=== PATIENT | female | born 1940 | race Caucasian/White ===

== ENCOUNTER 2017-05-20 12:51 | Emergency (ER) | payer SELFPAY ==
[~2017-05-20] VITALS: Ht 167.6 cm; Wt 50.8 kg
[~2017-05-20 12:51] MED LIST: AC325T; ASP81CT PO; CARV3.12T PO; CEPH500C PO; CLD600T PO; CLPD75T PO; DCS100C PO; ENLP2.5T PO; ESTR0.5T PO; FRSM20T PO; FRSM40T PO; GEMF600T3 PO; GMFB600T; HYDR-34 PO; IBP800T PO; LISI2.5T56 PO; LISI5TAB14; LVF250T PO; METO25TA2 PO; MULT-608 PO; MULT1TAB63; NF-TYLARTH PO; SPRN25T PO; TIOT18CA IH; TRAM50TA2 PO; TRM50T PO; TRM50TRX; [UNRECOGNIZED DRUG - CODE]
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
--- OUTSIDE RECORDS SUMMARY | 2017-05-20 12:56 | XMS REPORT ---
Author JOSE Ayala [facility] eClinicalWorks Address Unknown Phone Unavailable Care Team Providers Care Safety And Skill Based Pay Manager Name Role Phone JOSE MASSEY CP Unavailable Allergies No Known Allergies Problems Problem Type Condition Code Onset Dates Condition Status Assessment Encounter for immunization Z23 Active Medications No Known Medications Procedures Procedure Coding System Code Date SINGLE IMMUNIZATION ADMIN CPT-4 45119 Feb 03, 2015 TDAP (BOOSTRIX) CPT-4 96574 Feb 03, 2015 Results No Known Results Immunizations Vaccine Administration Date TDAP (BOOSTRIX) Feb 03, 2015 Summary Purpose eClinicalWorks Submission
[2017-05-20] MEDS ORDERED: LACTATED RINGERS 1,000 ML IV ONE (13:46)
--- NOTE | 2017-05-20 13:52 | ED Cough/URI ---
General Chief Complaint: Cough/Cold/Flu Symptoms Stated Complaint: FEVER,N Nursing Triage Note: TO ED PER W/C FROM DR COBURN OFFICE. WITH FEVER COUGH CONGESTION BODY ACHES. Source: patient, RN/MD (Dr. Coburn) Exam Limitations: no limitations History of Present Illness Date Seen by Provider: May 20, 2017 Time Seen by Provider: 13:36 Initial Comments Patient presents to ER by private conveyance with chief complaint that Dr. Coburn sent her over here from the clinic because he felt that she had flulike symptoms and was volume depleted and she might need IV fluids. Patient describes the past couple days now she has had increasing malaise, body aches and all of her major joints, nasal congestion, sore throat, decreased fluid intake. She has no abdominal pain or nausea. No diarrhea or constipation. She does not have diabetes. She does not take any inhalers or have a history of COPD or asthma. She had a MAXIMUM TEMPERATURE of 101F today. She gives a history that one point she had severe congestive heart failure with an EF of 9% on his right was recommended to have a heart transplant but she did not pursue this and has since then had recovered ejection fraction. She's having no weight gain or edema. She does not have an LVAD or implantable pacemaker. Allergies and Home Medications Allergies Coded Allergies: ipratropium (Verified Allergy, Unknown, 10/23/05) Uncoded Allergies: BEE STINGS (Allergy, Unknown, 08/23/06) Home Medications Aspirin 81 Mg Chew, 81 MG PO DAILY@0900, #30 Prescribed by: CARISSA CANNON on 06/14/13 1328 Carvedilol 3.125 Mg Tablet, 3.125 MG PO BID, #30 Prescribed by: CARISSA CANNON on 06/14/13 1328 Cephalexin Monohydrate 500 Mg Capsule, 500 MG PO TID for 5 Days Prescribed by: CARISSA CANNON on 06/14/13 1737 Enalapril Maleate 2.5 Mg Tab, 2.5 MG PO DAILY, #30 Prescribed by: CARISSA CANNON on 06/14/13 1328 Furosemide 40 Mg Tab, 40 MG PO DAILY, #30 Prescribed by: CARISSA CANNON on 06/14/13 1328 Hydrocodone Bit/Acetaminophen 1 Ea Tablet, 1 EA PO Q4H PRN for PAIN, #30 Prescribed by: HUEY COBURN on 06/14/13 1708 Spironolactone 25 Mg Tab, 25 MG PO DAILY, #30 Prescribed by: CARISSA CANNON on 06/14/13 1328 Constitutional: chills, diaphoresis, fever, malaise, weakness EENTM: No ear discharge, No hearing loss, No ear pain Respiratory: cough, No phlegm, No short of breath, No wheezing Cardiovascular: No chest pain, No palpitations Gastrointestinal: No abdominal pain, No constipation, No diarrhea, No nausea, No vomiting Genitourinary: No discharge, No dysuria Musculoskeletal: No back pain, joint pain, No joint swelling, muscle pain Skin: No pruritus, No rash Psychiatric/Neurological: Denies Headache, Denies Numbness, Denies Paresthesia Past Hendsvu-Cjsqxz-Lgittz Hx Patient Social History Alcohol Use: Denies Use Recreational Drug Use: No Smoking Status: Never a Smoker Recent Foreign Travel: No Contact w/Someone Who Travel: No Recent Infectious Disease Expo: No Recent Hopitalizations: Yes Immunizations Up To Date Date of Pneumonia Vaccine: Apr 21, 2006 Surgeries History of Surgeries: Yes (R HIP FX REPAIR) Respiratory History of Respiratory Disorde: Yes Respiratory Disorders: Emphysema Cardiovascular History of Cardiac Disorders: Yes (Three Heart caths/no stent,CHF) Neurological History of Neurological Disord: No Reproductive System Hx Reproductive Disorders: Yes Sexually Transmitted Disease: No HIV/AIDS: No Gastrointestinal History of Gastrointestinal Di: No Musculoskeletal History of Musculoskeletal Dis: Yes (R HIP PAIN D/T FX) Musculoskeletal Disorders: Arthritis Endocrine History of Endocrine Disorders: No HEENT Loss of Vision: Denies Hearing Impairment: Denies Cancer History of Cancer: No Psychosocial History of Psychiatric Problem: No Integumentary History of Skin or Integumenta: No Blood Transfusions History of Blood Disorders: Yes (CLOTS) Adverse Reaction to a Blood Tr: No Family Medical History Family Medial History: Cancer of colon 03 FATHER, Onset:60 years & older 03 MOTHER, Onset:60 years & older Congestive heart failure 09 SISTER, Onset:50's - 60 No Family History of: Family history: Alzheimer's disease Family history: Diabetes mellitus Family history: Gastrointestinal disease History of - respiratory disease Stroke Physical Exam Vital Signs Vital Sign - Last 12Hours 05/20/17 13:09 Temp 99.4 Pulse 96 Resp 18 B/P (MAP) 124/86 (99) Pulse Ox 93 O2 Delivery Room Air Capillary Refill : Less Than 3 Seconds General Appearance: WD/WN, mild distress, thin Eyes: Bilateral Eye Normal Inspection, Bilateral Eye PERRL, Bilateral Eye EOMI HEENT: PERRL/EOMI, normal ENT inspection, pharyngeal erythema, No tonsillar exudate, other (bilateral TMs with clear mucoid effusion. Oral mucosa is dry) Neck: non-tender, supple, normal inspection Respiratory: chest non-tender, lungs clear, normal breath sounds, no respiratory distress, no accessory muscle use Cardiovascular: normal peripheral pulses, regular rate, rhythm, no edema, no JVD Gastrointestinal: normal bowel sounds, non tender, soft Extremities: normal inspection, no pedal edema, normal capillary refill Neurologic/Psychiatric: alert, normal mood/affect, oriented x 3 Skin: normal color, warm/dry Progress/Results/Core Measures Suspected Sepsis Recent Fever Within 48 Hours: No Infection Criteria Present: None New/Unexplained Altered Menta: No Sepsis Screen: No Definite Risk Sepsis Diagnosis: SIRS Temperature:99.4 Pulse: 96 Respiratory Rate: 18 Laboratory Tests 05/20/17 13:58: White Blood Count 8.9 Blood Pressure 124 /86 Mean: 99 Laboratory Tests 05/20/17 13:58: Creatinine 0.94, Platelet Count 202, Total Bilirubin 0.5 Results/Orders Lab Results Laboratory Tests Test 05/20/17 13:52 05/20/17 13:58 Range/Units Group A Streptococcus Screen NEGATIVE NEGATIVE White Blood Count 8.9 4.3-11.0 10^3/uL Red Blood Count 3.60 L 4.35-5.85 10^6/uL Hemoglobin 11.9 11.5-16.0 G/DL Hematocrit 34 L 35-52 % Mean Corpuscular Volume 95 80-99 FL Mean Corpuscular Hemoglobin 33 25-34 PG Mean Corpuscular Hemoglobin Concent 35 32-36 G/DL Red Cell Distribution Width 12.2 10.0-14.5 % Platelet Count 202 130-400 10^3/uL Mean Platelet Volume 10.6 H 7.4-10.4 FL Neutrophils (%) (Auto) 87 H 42-75 % Lymphocytes (%) (Auto) 5 L 12-44 % Monocytes (%) (Auto) 7 0-12 % Eosinophils (%) (Auto) 1 0-10 % Basophils (%) (Auto) 0 0-10 % Neutrophils # (Auto) 7.8 1.8-7.8 X 10^3 Lymphocytes # (Auto) 0.5 L 1.0-4.0 X 10^3 Monocytes # (Auto) 0.6 0.0-1.0 X 10^3 Eosinophils # (Auto) 0.1 0.0-0.3 10^3/uL Basophils # (Auto) 0.0 0.0-0.1 10^3/uL Neutrophils % (Manual) 88 % Lymphocytes % (Manual) 6 % Monocytes % (Manual) 5 % Eosinophils % (Manual) 0 % Basophils % (Manual) 0 % Band Neutrophils 1 % Blood Morphology Comment NORMAL Sodium Level 139 135-145 MMOL/L Potassium Level 3.4 L 3.6-5.0 MMOL/L Chloride Level 101 98-107 MMOL/L Carbon Dioxide Level 27 21-32 MMOL/L Anion Gap 11 5-14 MMOL/L Blood Urea Nitrogen 18 7-18 MG/DL Creatinine 0.94 0.60-1.30 MG/DL Estimat Glomerular Filtration Rate 58 BUN/Creatinine Ratio 19 Glucose Level 99 70-105 MG/DL Calcium Level 9.8 8.5-10.1 MG/DL Total Bilirubin 0.5 0.1-1.0 MG/DL Aspartate Amino Transf (AST/SGOT) 18 5-34 U/L Alanine Aminotransferase (ALT/SGPT) 15 0-55 U/L Alkaline Phosphatase 48 40-136 U/L C-Reactive Protein High Sensitivity 0.57 H 0.00-0.50 MG/DL Total Protein 7.5 6.4-8.2 GM/DL Albumin 4.5 3.2-4.5 GM/DL Micro Results Microbiology 05/20/17 Influenza Types A,B Antigen (MICHELLE) - Final, Complete My Orders Orders - KLAUDIA GOOD Cbc With Automated Diff (05/20/17 13:46) Comprehensive Metabolic Panel (05/20/17 13:46) Hs C Reactive Protein (05/20/17 13:46) Influenza A And B Antigens (05/20/17 13:46) Chest Pa/Lat (2 View) (05/20/17 13:46) Saline Lock/Iv-Start (05/20/17 13:46) Lactated Ringers (Lr 1000 Ml Iv Solution (05/20/17 13:46) Manual Differential (05/20/17 13:58) Rapid Strep A Screen (05/20/17 14:31) Medications Given in ED Current Medications Medications Dose Ordered Sig/Gabriela Route Start Time Stop Time Status Last Admin Dose Admin Lactated Ringer's 1,000 ml @ 0 mls/hr Q0M ONCE IV 05/20/17 13:46 05/20/17 13:48 DC 05/20/17 13:57 1,000 MLS/HR Vital Signs/I&O Vital Sign - Last 12Hours 05/20/17 13:09 Temp 99.4 Pulse 96 Resp 18 B/P (MAP) 124/86 (99) Pulse Ox 93 O2 Delivery Room Air Capillary Refill : Less Than 3 Seconds Blood Pressure Mean: 99 Progress Note #1: Time: 13:53 Progress Note Were going to re-swab her for influenza as well as strep throat given her red raw throat. Her symptoms are certainly consistent with influenza-like illness. While her lung sound clear at the chest x-ray and some lab work would be in order since he's tachycardia could be from volume depletion versus possible SIRs. Progress Note #2: Time: 16:00 Progress Note Patient states she's feeling better. We gave her the option for an observation stay in she says she has declined this and would prefer to just go home with some cough medicine and nausea medicine and drink more fluids. We have discussed decreasing her Lasix by half or full if she gets worse. We have also asked her to follow up this week for the weekend with her primary care physician. She is happy with this plan. Diagnostic Imaging Diagonstic Imaging: Xray Plain Films/CT/US/NM/MRI: chest (2v) Comments 11 ribs above the diaphragm. No acute cardiopulmonary processes noted. [facility] [place], [place] NAME: MERLE NICE [facility] REC#: [id number] PT STATUS: REG ER : 1940 PHYSICIAN: KLAUDIA GOOD MD ADMIT DATE: 05/20/17/ER Draft Date of Exam:05/20/17 CHEST PA/LAT (2 VIEW) INDICATION: Fever and nausea. Time of exam: 2:30 PM Correlation is made with prior study from 06/10/2013. The heart size is normal. There is some hyperinflation consistent with COPD. No infiltrates are detected. No effusion or pneumothorax is detected. IMPRESSION: No acute cardiopulmonary process is detected. Dictated on workstation # [id number] Dict: 05/20/17 1422 Trans: 05/20/17 1425 [facility] [id number] Interpreted by: HARSHA SEAMAN MD Electronically signed by: Reviewed: Reviewed by Me Departure Impression Impression: Primary Impression: Influenza-like symptoms Disposition: HOME, SELF-CARE Condition: Improved Departure-Patient Inst. Decision time for Depature: 16:02 Referrals: KAREN COBURN MD (PCP/Family) Primary Care Physician Patient Instructions: Viral Upper Respiratory Infection, Adult (DC) Add. Discharge Instructions: It is important that you continue to drink fluids use humidifiers, vapor rubs and Tylenol [id number] for aches or temperatures. Please Your Lasix dose in half until you start to feel better. If you begin to have swelling around her ankles you can increase her dose again. If you're still getting dehydrated or have a dry mouth then you should go ahead and stop your Lasix for a day and then reassess the next day. Follow up with your primary care provider before the weekend. If you shortness of breath gets worse or you're cough becomes productive of copious sputum or you begin to have fevers about 102.5 especially if they are not responding to the Tylenol you should return to the ER/PCP for evaluation. If you have cough you may use the cough medicine every 6 hours. If you're having nausea you can take one tablet of the nausea medicine place under your tongue and allow it to absorb every 6 hours as needed. All discharge instructions reviewed with patient and/or family. Voiced understanding. Scripts Ondansetron (Zofran Odt) 8 Mg Tab.rapdis 8 MG PO Q6H Y for NAUSEA/VOMITING-1ST LINE, #10 TAB 0 Refills Prov: KLAUDIA GOOD 05/20/17 Promethazine HCl/Codeine (Prometh-Codein 6.25-10 mg/5 ml) 5 Ml Syrup 5 ML PO Q6H Y for COUGH, #120 ML 0 Refills Prov: KLAUDIA GOOD 05/20/17 Copy Copies To 1: KAREN COBURN MD, TITUS J May 20, 2017 13:52
[2017-05-20 14:09] LABS: BASOPHILS % (AUTO) 0 % (0-10); EOSINOPHILS # (AUTO) 0.1 10^3/uL (0.0-0.3); EOSINOPHILS % (AUTO) 1 % (0-10); HEMATOCRIT 34 % (35-52); HEMOGLOBIN 11.9 G/DL (11.5-16.0); LYMPHOCYTES # (AUTO) 0.5 X 10^3 (1.0-4.0); LYMPHOCYTES % (AUTO) 5 % (12-44); MEAN CORPUSCULAR HEMOGLOBIN 33 PG (25-34); MEAN CORPUSCULAR HGB CONC 35 G/DL (32-36); MEAN CORPUSCULAR VOLUME 95 FL (80-99); MEAN PLATELET VOLUME 10.6 FL (7.4-10.4); MONOCYTES # (AUTO) 0.6 X 10^3 (0.0-1.0); MONOCYTES % (AUTO) 7 % (0-12); NEUTROPHILS # (AUTO) 7.8 X 10^3 (1.8-7.8); NEUTROPHILS % (AUTO) 87 % (42-75); PLATELET COUNT 202 10^3/uL (130-400); RED CELL DISTRIBUTION WIDTH 12.2 % (10.0-14.5); WHITE BLOOD COUNT 8.9 10^3/uL (4.3-11.0)
[2017-05-20 14:24] LABS: BAND NEUTROPHILS 1 %; BASOPHILS % (MANUAL) 0 %; EOSINOPHILS % (MANUAL) 0 %; LYMPHOCYTES % (MANUAL) 6 %; MONOCYTES % (MANUAL) 5 %; NEUTROPHILS % (MANUAL) 88 %; RBC MORPH NORMAL
--- NOTE | 2017-05-20 14:25 | Diagnostic Imaging Report ---
INDICATION: Fever and nausea. Time of exam: 2:30 PM Correlation is made with prior study from 06/10/2013. The heart size is normal. There is some hyperinflation consistent with COPD. No infiltrates are detected. No effusion or pneumothorax is detected. IMPRESSION: No acute cardiopulmonary process is detected. Dictated by: Dictated on workstation # [id number]
[2017-05-20 14:32] LABS: ALBUMIN 4.5 GM/DL (3.2-4.5); BILIRUBIN,TOTAL 0.5 MG/DL (0.1-1.0); CALCIUM 9.8 MG/DL (8.5-10.1); CREATININE SERUM 0.94 MG/DL (0.60-1.30); POTASSIUM 3.4 MMOL/L (3.6-5.0); TOTAL PROTEIN 7.5 GM/DL (6.4-8.2)
[2017-05-20] MEDS ORDERED: PROM5SYR PO (16:07)
[2017-05-20] MEDS ORDERED: ONDA8TAB9 PO (16:07)
[2017-05-20 16:11] VITALS: BP 116/50
== END 2017-05-20 16:11 | disposition home or self-care (01) ==
LOC: EDUNIT# 12:51 → ER 12:53
DX: J11.1 Influenza due to unidentified influenza virus with other respiratory manifestations (principal); J43.9 Emphysema, unspecified; Z82.49 Family history of ischemic heart disease and other diseases of the circulatory system; Z80.0 Family history of malignant neoplasm of digestive organs; Z79.82 Long term (current) use of aspirin; Z88.8 Allergy status to other drugs, medicaments and biological substances
CPT/HCPCS: 36415; 71046; 80053; 85007; 85027; 86141; 87430; 87804; 96360

== ENCOUNTER 2017-06-02 11:52 | Observation (INO) | payer MEDICARE, OTHER ==
[~2017-06-02] VITALS: Ht 167.6 cm; Wt 51.7 kg
[~2017-06-02 11:52] MED LIST changes: +ONDA8TAB9 PO; +PROM5SYR PO
[2017-06-02] MEDS ORDERED: NS IV 1000 ML 1,000 ML IV SCH (14:00)
[2017-06-02] MEDS ORDERED: ONDANSETRON 4 MG/2 ML (SDV) Z0FRAN IVP ONE ×2 (14:00→14:45)
--- NOTE | 2017-06-02 14:24 | ED GI ---
General Chief Complaint: Abdominal/GI Problems Stated Complaint: N/V/D/WEAKNESS Nursing Triage Note: Pt c/o abd pain and n/v/d since 2200 last night. Sepsis Screen: No Definite Risk Source of Information: Patient, Other Exam Limitations: No Limitations History of Present Illness Date Seen by Provider: Jun 02, 2017 Time Seen by Provider: 14:00 Initial Comments Patient present to ER by private conveyance with a chief complaint that she is having some nausea vomiting for the past day or 2 as well as diarrhea. There is no blood in the emesis or diarrhea. She was seen about 2 weeks ago was swabbed and was negative for flu was having a cough and was put on some steroids and sent home. She said she started feeling a little better but then went to see Dr. Coburn, PCP several days ago and he extended her steroids and put her on azithromycin which she completed about a day or 2 ago. She says she was feeling pretty good until yesterday when she started having nausea vomiting. She decided to come into her primary care doctor's office but he told her to go to the ER instead because she would likely need admitted. She says her mouth is very dry she's not been ill keep anything down except for a few ice chips. She took all of her medicines except for this morning because the nausea vomiting prevented this. She is on spironolactone and Lasix for congestive heart failure. She's not having any fevers or chills right now but she definitely had malaise and body aches. Patient states 2 weeks ago she weighed 118 pounds and today she weighs 108 pounds which she attributes to her inability to keep fluids down. Allergies and Home Medications Allergies Coded Allergies: Sulfa (Sulfonamide Antibiotics) (Unverified Allergy, Unknown, 06/02/17) ipratropium (Verified Allergy, Unknown, 10/23/05) Uncoded Allergies: BEE STINGS (Allergy, Unknown, 08/23/06) Home Medications Aspirin 81 Mg Chew, 81 MG PO DAILY@0900, #30 Prescribed by: CARISSA CANNON on 06/14/13 1328 Carvedilol 3.125 Mg Tablet, 3.125 MG PO BID, #30 Prescribed by: CARISSA CANNON on 06/14/13 1328 Cephalexin Monohydrate 500 Mg Capsule, 500 MG PO TID for 5 Days Prescribed by: CARISSA CANNON on 06/14/13 1737 Enalapril Maleate 2.5 Mg Tab, 2.5 MG PO DAILY, #30 Prescribed by: CARISSA CANNON on 06/14/13 1328 Furosemide 40 Mg Tab, 40 MG PO DAILY, #30 Prescribed by: CARISSA CANNON on 06/14/13 1328 Hydrocodone Bit/Acetaminophen 1 Ea Tablet, 1 EA PO Q4H PRN for PAIN, #30 Prescribed by: HUEY COBURN on 06/14/13 1708 Ondansetron 8 Mg Tab.rapdis, 8 MG PO Q6H PRN for NAUSEA/VOMITING-1ST LINE, #10 Ref 0 Prescribed by: KLAUDIA GOOD on 05/20/17 1607 Promethazine HCl/Codeine 5 Ml Syrup, 5 ML PO Q6H PRN for COUGH, #120 Ref 0 Prescribed by: KLAUDIA GOOD on 05/20/17 1607 Spironolactone 25 Mg Tab, 25 MG PO DAILY, #30 Prescribed by: CARISSA CANNON on 06/14/13 1328 Review of Systems Constitutional: No chills, No diaphoresis, No fever, malaise (body aches) EENTM: No Double Vision, No Eye Pain Respiratory: Cough (productive), Denies Orthopnea, Shortness of Air (mild), Denies Wheezing Cardiovascular: Denies Chest Pain, Denies Lightheadedness, Denies Palpitations , Denies Syncope Gastrointestinal: Denies Constipated, Diarrhea (nonbloody), Nausea, Vomiting Genitourinary: Denies Burning, Denies Discharge Skin: No pruritus, No rash Past Tsvpsbf-Vjzbqj-Mvhduc Hx Patient Social History Alcohol Use: Denies Use Recreational Drug Use: No Smoking Status: Never a Smoker Recent Foreign Travel: No Contact w/Someone Who Travel: No Recent Infectious Disease Expo: No Recent Hopitalizations: Yes Immunizations Up To Date Date of Pneumonia Vaccine: Apr 21, 2006 Surgeries History of Surgeries: Yes (R HIP FX REPAIR) Respiratory History of Respiratory Disorde: Yes Respiratory Disorders: Emphysema Cardiovascular History of Cardiac Disorders: Yes (Three Heart caths/no stent,CHF) Neurological History of Neurological Disord: No Reproductive System Hx Reproductive Disorders: Yes Sexually Transmitted Disease: No HIV/AIDS: No Gastrointestinal History of Gastrointestinal Di: No Musculoskeletal History of Musculoskeletal Dis: Yes (R HIP PAIN D/T FX) Musculoskeletal Disorders: Arthritis Endocrine History of Endocrine Disorders: No HEENT Loss of Vision: Denies Hearing Impairment: Denies Cancer History of Cancer: No Psychosocial History of Psychiatric Problem: No Integumentary History of Skin or Integumenta: No Blood Transfusions History of Blood Disorders: Yes (CLOTS) Adverse Reaction to a Blood Tr: No Family Medical History Family Medial History: Cancer of colon 03 FATHER, Onset:60 years & older 03 MOTHER, Onset:60 years & older Congestive heart failure 09 SISTER, Onset:50's - 60 No Family History of: Family history: Alzheimer's disease Family history: Diabetes mellitus Family history: Gastrointestinal disease History of - respiratory disease Stroke Physical Exam Vital Signs VS - Last 72 Hours, by Label 06/02/17 13:11 Temp 98.9 Pulse 114 Resp 18 B/P (MAP) 120/62 (81) Pulse Ox 96 O2 Delivery Room Air Capillary Refill : Less Than 3 Seconds General Appearance: mild distress, thin HEENT: PERRL/EOMI, TMs normal, pharynx normal (oral mucosa is very dry) Neck: non-tender, full range of motion, supple, normal inspection Respiratory: chest non-tender, lungs clear, normal breath sounds, no respiratory distress, no accessory muscle use Cardiovascular: normal peripheral pulses, regular rate, rhythm, no edema, no JVD Peripheral Pulses: 2+ Dorsalis Pedis (R), 2+ Left Dors-Pedis (L) Gastrointestinal: normal bowel sounds, non tender, soft Extremities: normal inspection, no pedal edema, no calf tenderness, normal capillary refill Neurologic/Psychiatric: alert, normal mood/affect, oriented x 3 Skin: normal color, warm/dry Progress/Results/Core Measures Results/Orders Lab Results Laboratory Tests Test 06/02/17 14:01 Range/Units White Blood Count 14.5 H 4.3-11.0 10^3/uL Red Blood Count 3.83 L 4.35-5.85 10^6/uL Hemoglobin 12.4 11.5-16.0 G/DL Hematocrit 36 35-52 % Mean Corpuscular Volume 94 80-99 FL Mean Corpuscular Hemoglobin 32 25-34 PG Mean Corpuscular Hemoglobin Concent 35 32-36 G/DL Red Cell Distribution Width 12.4 10.0-14.5 % Platelet Count 338 130-400 10^3/uL Mean Platelet Volume 10.3 7.4-10.4 FL Neutrophils (%) (Auto) 92 H 42-75 % Lymphocytes (%) (Auto) 2 L 12-44 % Monocytes (%) (Auto) 5 0-12 % Eosinophils (%) (Auto) 0 0-10 % Basophils (%) (Auto) 0 0-10 % Neutrophils # (Auto) 13.3 H 1.8-7.8 X 10^3 Lymphocytes # (Auto) 0.4 L 1.0-4.0 X 10^3 Monocytes # (Auto) 0.8 0.0-1.0 X 10^3 Eosinophils # (Auto) 0.0 0.0-0.3 10^3/uL Basophils # (Auto) 0.0 0.0-0.1 10^3/uL Neutrophils % (Manual) 93 % Lymphocytes % (Manual) 4 % Monocytes % (Manual) 3 % Blood Morphology Comment NORMAL Sodium Level 139 135-145 MMOL/L Potassium Level 3.8 3.6-5.0 MMOL/L Chloride Level 104 98-107 MMOL/L Carbon Dioxide Level 20 L 21-32 MMOL/L Anion Gap 15 H 5-14 MMOL/L Blood Urea Nitrogen 25 H 7-18 MG/DL Creatinine 0.99 0.60-1.30 MG/DL Estimat Glomerular Filtration Rate 54 BUN/Creatinine Ratio 25 Glucose Level 183 H 70-105 MG/DL Calcium Level 10.2 H 8.5-10.1 MG/DL Total Bilirubin 0.7 0.1-1.0 MG/DL Aspartate Amino Transf (AST/SGOT) 24 5-34 U/L Alanine Aminotransferase (ALT/SGPT) 19 0-55 U/L Alkaline Phosphatase 51 40-136 U/L C-Reactive Protein High Sensitivity 2.65 H 0.00-0.50 MG/DL B-Type Natriuretic Peptide 47.6 <100.0 PG/ML Total Protein 8.0 6.4-8.2 GM/DL Albumin 4.6 H 3.2-4.5 GM/DL Micro Results Microbiology 06/02/17 Influenza Types A,B Antigen (MICHELLE) - Final, Complete My Orders Orders - KLAUDIA GOOD Ondansetron Injection (Zofran Injectio (06/02/17 14:00) Ns Iv 1000 Ml (Sodium Chloride 0.9%) (06/02/17 14:00) Cbc With Automated Diff (06/02/17 13:56) Comprehensive Metabolic Panel (06/02/17 13:56) BNP (06/02/17 14:17) Hs C Reactive Protein (06/02/17 14:17) Influenza A And B Antigens (06/02/17 14:17) Chest 1 View, Ap/Pa Only (06/02/17 14:17) Ua Culture If Indicated (06/02/17 14:25) Manual Differential (06/02/17 14:01) Ondansetron Injection (Zofran Injectio (06/02/17 14:45) 1/2 Ns W/Kcl 20 Meq/L (0.45% Sodium Chlo (06/02/17 15:15) Medications Given in ED Current Medications Medications Dose Ordered Sig/Gabriela Route Start Time Stop Time Status Last Admin Dose Admin Ondansetron HCl 4 mg ONCE ONCE IVP 06/02/17 14:00 06/02/17 14:01 DC 06/02/17 14:10 4 MG Ondansetron HCl 4 mg ONCE ONCE IVP 06/02/17 14:45 06/02/17 14:46 DC 06/02/17 15:12 4 MG Vital Signs/I&O Vital Sign - Last 12Hours 06/02/17 13:11 Temp 98.9 Pulse 114 Resp 18 B/P (MAP) 120/62 (81) Pulse Ox 96 O2 Delivery Room Air Blood Pressure Mean: 81 Progress Note : Time: 14:24 Progress Note Possible viral versus influenza gastroenteritis and colitis. This is constipation be very dehydrated on appearance. We'll check her electrolytes and kidney function as well as start some fluids and 1 L and nausea medicines. She is probably going to need a short stay in the hospital to get rehydrated and address any of her other needs. Diagnostic Imaging Diagonstic Imaging: Xray Plain Films/CT/US/NM/MRI: chest (1v) Comments No acute cardio pulmonary processes noted. [facility] [place], [place] NAME: NICEMERLE REC#: [id number] PT STATUS: REG ER : 1940 PHYSICIAN: KLAUDIA GOOD MD ADMIT DATE: 06/02/17/ER Draft Date of Exam:06/02/17 CHEST 1 VIEW, AP/PA ONLY INDICATION: Nausea, vomiting, and diarrhea. Frontal chest obtained at 2:48 p.m. FINDINGS: Heart is normal in size. There is mild central vascular prominence. There are chronic appearing increased interstitial markings. There is no pneumothorax or pleural fluid or consolidation. IMPRESSION: Mild central vascular prominence with chronic appearing increased interstitial markings. No focal consolidation or pleural fluid. Dictated on workstation # [id number] Dict: 06/02/17 1453 Trans: 06/02/17 1512 [id number] Interpreted by: KEISHA MONTEZ MD Electronically signed by: Reviewed: Reviewed by Me Departure Communication (Admissions) Time/Spoke to Admitting Phy: 15:[address] Luke, discussed case lab imaging and findings and he agrees to bring the patient and treat her dehydration with some fluids and Zofran. Impression Impression: Primary Impression: Dehydration Additional Impression: Gastroenteritis and colitis, viral Disposition: 09 ADMITTED INPATIENT Condition: Improved Admissions Decision to Admit Reason: Admit from ER (General) Decision to Admit/Date: Jun 02, 2017 Time/Decision to Admit Time: 15:47 Departure-Patient Inst. Referrals: KAREN COBURN MD (PCP/Family) Primary Care Physician Copy Copies To 1: KAREN COBURN MD, TITUS J Jun 02, 2017 14:24
[2017-06-02 14:39] LABS: BASOPHILS % (AUTO) 0 % (0-10); EOSINOPHILS % (AUTO) 0 % (0-10); HEMATOCRIT 36 % (35-52); HEMOGLOBIN 12.4 G/DL (11.5-16.0); LYMPHOCYTES # (AUTO) 0.4 X 10^3 (1.0-4.0); LYMPHOCYTES % (AUTO) 2 % (12-44); MEAN CORPUSCULAR HEMOGLOBIN 32 PG (25-34); MEAN CORPUSCULAR HGB CONC 35 G/DL (32-36); MEAN CORPUSCULAR VOLUME 94 FL (80-99); MEAN PLATELET VOLUME 10.3 FL (7.4-10.4); MONOCYTES # (AUTO) 0.8 X 10^3 (0.0-1.0); MONOCYTES % (AUTO) 5 % (0-12); NEUTROPHILS # (AUTO) 13.3 X 10^3 (1.8-7.8); NEUTROPHILS % (AUTO) 92 % (42-75); PLATELET COUNT 338 10^3/uL (130-400); RED BLOOD COUNT 3.83 10^6/uL (4.35-5.85); RED CELL DISTRIBUTION WIDTH 12.4 % (10.0-14.5); WHITE BLOOD COUNT 14.5 10^3/uL (4.3-11.0)
[2017-06-02 14:50] LABS: ALBUMIN 4.6 GM/DL (3.2-4.5); BILIRUBIN,TOTAL 0.7 MG/DL (0.1-1.0); CALCIUM 10.2 MG/DL (8.5-10.1); CREATININE SERUM 0.99 MG/DL (0.60-1.30); POTASSIUM 3.8 MMOL/L (3.6-5.0)
[2017-06-02 14:59] LABS: LYMPHOCYTES % (MANUAL) 4 %; MONOCYTES % (MANUAL) 3 %; NEUTROPHILS % (MANUAL) 93 %; RBC MORPH NORMAL
--- NOTE | 2017-06-02 15:12 | Diagnostic Imaging Report ---
INDICATION: Nausea, vomiting, and diarrhea. Frontal chest obtained at 2:48 p.m. FINDINGS: Heart is normal in size. There is mild central vascular prominence. There are chronic appearing increased interstitial markings. There is no pneumothorax or pleural fluid or consolidation. IMPRESSION: Mild central vascular prominence with chronic appearing increased interstitial markings. No focal consolidation or pleural fluid. Dictated by: Dictated on workstation # [id number]
[2017-06-02] MEDS ORDERED: 1/2 NS W/KCL 20 MEQ/L 1,000 ML IV SCH (15:15)
[2017-06-02] MEDS ORDERED: ACETAMINOPHEN 500 MG TAB (TYLENOL) PO ONE (16:45)
[2017-06-02 17:00] VITALS: BP 123/60
[2017-06-02] MEDS ORDERED: ONDANSETRON 4 MG/2 ML (SDV) Z0FRAN IV PRN (17:45)
[2017-06-02] MEDS ORDERED: CATHETER FLUSH 10 ML SYR IV PRN (17:45)
[2017-06-02] MEDS: 1/2 NS W/KCL 20 MEQ/L 1,000 ML IV SCH (18:20)
[2017-06-02] MEDS ORDERED: CARV3.122 PO (18:24)
[2017-06-02] MEDS ORDERED: ENAL2.5T PO (18:24)
[2017-06-02] MEDS ORDERED: FURO40TA4 PO (18:24)
[2017-06-02] MEDS ORDERED: SPIR25TA3 PO (18:24)
[2017-06-02] MEDS ORDERED: MAGN250T2 PO (18:47)
[2017-06-02] MEDS ORDERED: ASPI-983 PO (18:47)
[2017-06-02] MEDS ORDERED: ONDA8TAB13 PO (18:47)
[2017-06-02] MEDS ORDERED: CODE118S2 PO (18:47)
[2017-06-02] MEDS ORDERED: ACET-2422 PO (18:47)
[2017-06-02] MEDS ORDERED: MULT1TAB69 PO (18:47)
[2017-06-02] MEDS ORDERED: CALC1TAB PO (18:47)
[2017-06-02] MEDS ORDERED: INFLUENZA TRIvalent 2017-2018 0.5 ML/45 MCG SYR IM ONE (19:45)
[2017-06-02 20:49] VITALS: BP 103/57
[2017-06-02 23:14] VITALS: BP 115/55
[2017-06-03] MEDS: 1/2 NS W/KCL 20 MEQ/L 1,000 ML IV SCH ×3 (01:27→22:56)
[2017-06-03 04:00] VITALS: BP 131/63
[2017-06-03 06:31] LABS: BASOPHILS % (AUTO) 0 % (0-10); EOSINOPHILS # (AUTO) 0.1 10^3/uL (0.0-0.3); EOSINOPHILS % (AUTO) 2 % (0-10); HEMATOCRIT 30 % (35-52); LYMPHOCYTES # (AUTO) 1.6 X 10^3 (1.0-4.0); LYMPHOCYTES % (AUTO) 22 % (12-44); MEAN CORPUSCULAR HEMOGLOBIN 32 PG (25-34); MEAN CORPUSCULAR HGB CONC 34 G/DL (32-36); MEAN CORPUSCULAR VOLUME 96 FL (80-99); MEAN PLATELET VOLUME 10.2 FL (7.4-10.4); MONOCYTES # (AUTO) 0.8 X 10^3 (0.0-1.0); MONOCYTES % (AUTO) 11 % (0-12); NEUTROPHILS # (AUTO) 4.7 X 10^3 (1.8-7.8); NEUTROPHILS % (AUTO) 65 % (42-75); PLATELET COUNT 253 10^3/uL (130-400); RED BLOOD COUNT 3.09 10^6/uL (4.35-5.85); RED CELL DISTRIBUTION WIDTH 12.7 % (10.0-14.5); WHITE BLOOD COUNT 7.2 10^3/uL (4.3-11.0)
[2017-06-03 06:54] LABS: BUN/CREATININE RATIO 20; CALCIUM 8.7 MG/DL (8.5-10.1); CARBON DIOXIDE 22 MMOL/L (21-32); CHLORIDE 109 MMOL/L (98-107); CREATININE SERUM 0.79 MG/DL (0.60-1.30); GFR ESTIMATED > 60; GLUCOSE 103 MG/DL (70-105); POTASSIUM 4.1 MMOL/L (3.6-5.0); SODIUM 140 MMOL/L (135-145)
[2017-06-03 08:00] VITALS: BP 112/55
[2017-06-03] MEDS: ACETAMINOPHEN 500 MG TAB (TYLENOL) PO PRN ×2 (11:27→21:25)
[2017-06-03 12:00] VITALS: BP 122/58
--- NOTE | 2017-06-03 12:24 | History & Physical-Hospitalist ---
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 She reports that on the evening of 06/01 after going to bed she began to have growling in her abdomen and ultimately vomiting and diarrhea. This was to an extent great enough that she ultimately had to prevail upon her to help her to the bathroom. This continued through the day yesterday and ultimately by afternoon she had had enough and was brought to the emergency room. She also reports that she had a flulike illness about 2 weeks ago. She also has a history of diverticulitis and also of congestive heart failure. By weight in the emergency room it would look as if she were down about 10 pounds. She was admitted for rehydration Date Seen 06/03/17 Time Seen by Provider: 12:21 Attending Physician Dipesh Ramírez MD PCP Chilo Coburn MD Referring Physician Date of Admission Jun 02, 2017 at 16:12 Home Medications & Allergies Home Medications Reviewed patient Home Medication Reconciliation Form Allergies Allergies Coded Allergies Sulfa (Sulfonamide Antibiotics) (Unverified Allergy, Unknown, 06/02/17) ipratropium (Verified Allergy, Unknown, 10/23/05) Uncoded Allergies BEE STINGS ( Allergy, Unknown, 08/23/06) Past Ftqldpq-Aknvmw-Vximhy Hx Patient Social History Alcohol Use: Denies Use Recreational Drug Use: No Smoking Status: Never a Smoker Physical Abuse Screen: No Sexual Abuse: No Recent Foreign Travel: No Contact w/other who traveled: No Recent Hopitalizations: No Recent Infectious Disease Expo: No Immunizations Up To Date Date of Pneumonia Vaccine: Apr 21, 2006 Seasonal Allergies Seasonal Allergies: No Surgeries Yes (R HIP FX REPAIR) Respiratory Yes Cardiovascular Yes (Three Heart caths/no stent,CHF) Neurological No Reproductive System Hx Reproductive Disorders: Yes Sexually Transmitted Disease: No HIV/AIDS: No Genitourinary No Gastrointestinal No Musculoskeletal Yes (R HIP PAIN D/T FX) Arthritis Endocrine History of Endocrine Disorders: No HEENT History of HEENT Disorders: No Loss of Vision: Denies Hearing Impairment: Denies Cancer No Psychosocial History of Psychiatric Problem: No Integumentary History of Skin or Integumenta: No Blood Transfusions History of Blood Disorders: Yes (CLOTS) Adverse Reaction to a Blood Tr: No Family Medical History Family Hx: Cancer of colon 03 FATHER, Onset:60 years & older 03 MOTHER, Onset:60 years & older Congestive heart failure 09 SISTER, Onset:50's - 60 No Family History of: Family history: Alzheimer's disease Family history: Diabetes mellitus Family history: Gastrointestinal disease History of - respiratory disease Stroke Review of Systems Constitutional: see HPI, dizziness, malaise, weakness, weight loss EENTM: no symptoms reported Respiratory: no symptoms reported, other (occasional cough left over from flulike illness 2 weeks ago) Cardiovascular: other (past history of congestive heart failure) Gastrointestinal: diarrhea, nausea, vomiting, other (crampy abdominal pain and gurgling) Genitourinary: decreased output Musculoskeletal: see HPI, muscle weakness Skin: no symptoms reported Psychiatric/Neurological: No Symptoms Reported Physical Exam Physical Exam Vital Signs Vital Signs - First Documented 06/02/17 13:11 Temp 98.9 Pulse 114 Resp 18 B/P (MAP) 120/62 (81) Pulse Ox 96 O2 Delivery Room Air Capillary Refill : Less Than 3 Seconds General Appearance: Mild Distress Eyes: Bilateral Eye Normal Inspection HEENT: Normal ENT Inspection Neck: Full Range of Motion, Normal Inspection, Non Tender, Supple, Carotid Bruit Respiratory: Chest Non Tender, Lungs Clear, Normal Breath Sounds, No Accessory Muscle Use, No Respiratory Distress Cardiovascular: Regular Rate, Rhythm, No Edema, No Gallop, No JVD, No Murmur, Normal Peripheral Pulses Gastrointestinal: Other (somewhat hyperactive bowel sounds) Back: Normal Inspection Extremity: Normal Capillary Refill, Normal Inspection, Normal Range of Motion, Non Tender, No Calf Tenderness, No Pedal Edema Neurologic/Psychiatric: Alert, Oriented x3, No Motor/Sensory Deficits, Normal Mood/Affect Skin: Normal Color, Warm/Dry Lymphatic: No Adenopathy Results Results/Procedures Lab Laboratory Tests 06/02/17 14:01 06/03/17 05:30 Assessment/Plan Admission Diagnosis 1.gastroenteritis of 2 days' duration. 2.dehydration. 3.history of congestive heart failure. Assessment and Plan Rehydration Clinical Quality Measures DVT/VTE Risk/Contraindication: Risk Factor Score Per Nursin RFS Level Per Nursing on Admit: 3=High DIPESH RAMÍREZ MD Jun 03, 2017 12:24
[2017-06-03 15:50] VITALS: BP 131/62
[2017-06-03 20:00] VITALS: BP 124/57
[2017-06-04] VITALS: BP 101/51
[2017-06-04 08:00] VITALS: BP 132/61
[2017-06-04] MEDS: 1/2 NS W/KCL 20 MEQ/L 1,000 ML IV SCH (08:30)
[2017-06-04] MEDS ORDERED: ONDANSETRON 8 MG (ZOFRAN) ORAL DISSOLVE TAB PO PRN (11:15)
[2017-06-04] MEDS ORDERED: PROMETHAZINE/ CODEINE SYRUP 5 ML UDC PO PRN (11:15)
--- NOTE | 2017-06-04 11:19 | Discharge Summary-Hospitalist ---
Diagnosis/Chief Complaint Date of Admission Jun 02, 2017 at 16:12 Date of Discharge Discharge Date: Jun 04, 2017 Admission Diagnosis 1.gastroenteritis of 2 days' duration. 2.dehydration. 3.history of congestive heart failure. Discharge Diagnosis 1.gastroenteritis of 2 days' duration. 2.dehydration. 3.history of congestive heart failure. Discharge Summary Discharge Physical Examination Allergies: Coded Allergies: Sulfa (Sulfonamide Antibiotics) (Unverified Allergy, Unknown, 06/02/17) ipratropium (Verified Allergy, Unknown, 10/23/05) Uncoded Allergies: BEE STINGS (Allergy, Unknown, 08/23/06) Vitals & I&Os Vital Signs Date Time Temp Pulse Resp B/P (MAP) Pulse Ox O2 Delivery O2 Flow Rate FiO2 06/04/17 08:00 97.0 73 14 132/61 (84) 97 Room Air 06/02/17 23:14 Hospital Course Note from 06/04/17 Patient doing much better and is able to eat and drink well Labs reviewed all normal Reconcile all home meds but holding Lasix Wants to go home Patient afebrile vital signs stable, pleasant, oriented 3, frail, thin Regular rate and rhythm, clear to auscultation bilaterally No edema Labs (last 24 hrs) Microbiology 06/02/17 Influenza Types A,B Antigen (MICHELLE) - Final, Complete Discharge Home Medications: Active Scripts Active Reported Ondansetron Odt (Ondansetron) 8 Mg Tab.rapdis 8 Mg PO Q6H PRN Promethazine-Codeine Syrup (Promethazine HCl/Codeine) 118 Ml Syrup 5 Ml PO Q6H PRN Magnesium 250 Mg Tablet 500 Mg PO DAILY TAKES 2 (250 MG) TABLETS Caltrate 600 + D Tablet (Calcium Carbonate/Vitamin D3) 1 Each Tablet 1 Tab PO DAILY Multivitamins (Multivitamin) 1 Each Tablet 1 Tab PO DAILY Acetaminophen ER (Acetaminophen) 650 Mg Tablet.er 1,300 Mg PO BID PRN TAKES 2 (650 MG) TABLETS Aspirin EC (Aspirin) 81 Mg Tablet.dr 81 Mg PO DAILY Enalapril Maleate 2.5 Mg Tablet 2.5 Mg PO BID Spironolactone 25 Mg Tablet 25 Mg PO DAILY Furosemide 40 Mg Tablet 20 Mg PO DAILY TAKES 1/2 OF A (40 MG) TABLET Carvedilol 3.125 Mg Tablet 3.125 Mg PO BID Instructions to patient/family Please see electronic discharge instructions given to patient. Clinical Quality Measures DVT/VTE Risk/Contraindication: Risk Factor Score Per Nursin RFS Level Per Nursing on Admit: 3=High CANDE HUSAIN DO Jun 04, 2017 11:19
[2017-06-04] MEDS ORDERED: ENALAPRIL 2.5 MG (VASOTEC) TAB PO SCH (21:00)
[2017-06-04] MEDS ORDERED: CARVEDILOL 3.125 MG (COREG) TABLET PO SCH (21:00)
[2017-06-05] MEDS ORDERED: SPIRONOLACTONE 25 MG (ALDACTONE) TAB PO SCH (09:00)
[2017-06-05] MEDS ORDERED: ASPIRIN E.C. 81 MG (ECOTRIN) TAB PO SCH (09:00)
[2017-06-05] MEDS ORDERED: MULTIVIT W/MINERALS TAB (THERAGRAN M) PO SCH (09:00)
--- OUTSIDE RECORDS SUMMARY | 2017-06-05 12:28 | XMS REPORT | Continuity of Care Document ---
Author Author [facility] Organization [facility] Address Unknown Phone Unavailable Allergies Active Description Code Type Severity Reaction Onset Reported/Identified Relationship to Patient Clinical Status Yes ipratropium [id number] Drug Allergy Unknown N/A 10/23/2005 Yes BEE STINGS BEE STINGS Unknown N/A 08/23/2006 Medications There is no data. Problems Date Dx Coded Attending Type Code Diagnosis Diagnosed By 08/14/2015 PAULETTE CALI Ot I10 ESSENTIAL (PRIMARY) HYPERTENSION 08/14/2015 PAULETTE CALI Ot I25.10 ATHSCL HEART DISEASE OF [place] CORONARY 08/14/2015 PAULETTE CALI Ot I42.0 DILATED CARDIOMYOPATHY 08/14/2015 PAULETTE CALI Ot J44.9 CHRONIC OBSTRUCTIVE PULMONARY DISEASE, U 08/14/2015 PAULETTE CALI Ot T50.905A ADVERSE EFFECT OF [facility] DRUG/MEDS/BIOL BULL 05/22/2017 KLAUDIA GOOD MD, Ot J11.1 FLU DUE TO UNIDENTIFIED INFLUENZA VIRUS 05/22/2017 KLAUDIA GOOD MD, Ot J43.9 EMPHYSEMA, UNSPECIFIED 05/22/2017 KLAUDIA GOOD MD Ot R50.9 FEVER, UNSPECIFIED 05/22/2017 KLAUDIA GOOD MD Ot Z79.82 RETIREMENT (CURRENT) USE OF ASPIRIN 05/22/2017 KLAUDIA GOOD MD Ot Z80.0 FAMILY HISTORY OF MALIGNANT NEOPLASM OF 05/22/2017 KLAUDIA GOOD MD, Ot Z82.49 FAMILY HX OF ISCHEM HEART DIS AND OTH DI 05/22/2017 KLAUDIA GOOD MD, Ot Z88.8 ALLERGY STATUS TO OT DRUG/MEDS/BIOL SUB Procedures There is no data. Results Test Result Range Influenza virus A and B antigen detection - 05/20/17 13:51 FLU RESULT NEGATIVE FOR INFLUENZA A AND B ANTIGENS BY SD [facility] Streptococcus pyogenes antigen detection - 05/20/17 13:52 Streptococcus pyogenes antigen detection NEGATIVE NEGATIVE Bacterial throat culture - 05/20/17 13:52 Bacterial throat culture NBS NRG Complete blood count (CBC) with automated white blood cell (WBC) differential - 05/20/17 13:58 Blood leukocytes automated count (number/volume) 8.9 10*3/uL 4.3-11.0 Blood erythrocytes automated count (number/volume) 3.60 10*6/uL 4.35-5.85 Venous blood hemoglobin measurement (mass/volume) 11.9 g/dL 11.5-16.0 Blood hematocrit (volume fraction) 34 % 35-52 Automated erythrocyte mean corpuscular volume 95 [foz_us] 80-99 Automated erythrocyte mean corpuscular hemoglobin (mass per erythrocyte) 33 pg 25-34 Automated erythrocyte mean corpuscular hemoglobin concentration measurement ( mass/volume) 35 g/dL 32-36 Automated erythrocyte distribution width ratio 12.2 % 10.0-14.5 Automated blood platelet count (count/volume) 202 10*3/uL 130-400 Automated blood platelet mean volume measurement 10.6 [foz_us] 7.4-10.4 Automated blood neutrophils/100 leukocytes 87 % 42-75 Automated blood lymphocytes/100 leukocytes 5 % 12-44 Blood monocytes/100 leukocytes 7 % 0-12 Automated blood eosinophils/100 leukocytes 1 % 0-10 Automated blood basophils/100 leukocytes 0 % 0-10 Blood neutrophils automated count (number/volume) 7.8 10*3 1.8-7.8 Blood lymphocytes automated count (number/volume) 0.5 10*3 1.0-4.0 Blood monocytes automated count (number/volume) 0.6 10*3 0.0-1.0 Automated eosinophil count 0.1 10*3/uL 0.0-0.3 Automated blood basophil count (count/volume) 0.0 10*3/uL 0.0-0.1 Blood manual differential performed detection - 05/20/17 13:58 Blood monocytes/100 leukocytes 5 % NRG Manual blood segmented neutrophils/100 leukocytes 88 % NRG Blood band neutrophils/100 leukocytes 1 % NRG Manual blood lymphocytes/100 leukocytes 6 % NRG Manual eosinophils/100 leukocytes in nose 0 % NRG Manual blood basophils/100 leukocytes 0 % NRG Blood erythrocyte morphology finding identification NORMAL NR Comprehensive metabolic panel - 05/20/17 13:58 Serum or plasma sodium measurement (moles/volume) 139 mmol/L 135-145 Serum or plasma potassium measurement (moles/volume) 3.4 mmol/L 3.6-5.0 Serum or plasma chloride measurement (moles/volume) 101 mmol/L 98-107 Carbon dioxide 27 mmol/L 21-32 Serum or plasma anion gap determination (moles/volume) 11 mmol/L 5-14 Serum or plasma urea nitrogen measurement (mass/volume) 18 mg/dL 7-18 Serum or plasma creatinine measurement (mass/volume) 0.94 mg/dL 0.60-1.30 Serum or plasma urea nitrogen/creatinine mass ratio 19 NRG Serum or plasma creatinine measurement with calculation of estimated glomerular filtration rate 58 NRG Serum or plasma glucose measurement (mass/volume) 99 mg/dL 70-105 Serum or plasma calcium measurement (mass/volume) 9.8 mg/dL 8.5-10.1 Serum or plasma total bilirubin measurement (mass/volume) 0.5 mg/dL 0.1-1.0 Serum or plasma alkaline phosphatase measurement (enzymatic activity/volume) 48 U/L 40-136 Serum or plasma aspartate aminotransferase measurement (enzymatic activity/ volume) 18 U/L 5-34 Serum or plasma alanine aminotransferase measurement (enzymatic activity/volume ) 15 U/L 0-55 Serum or plasma protein measurement (mass/volume) 7.5 g/dL 6.4-8.2 Serum or plasma albumin measurement (mass/volume) 4.5 g/dL 3.2-4.5 Serum or plasma C reactive protein measurement (mass/volume) - 05/20/17 13:58 Serum or plasma C reactive protein measurement (mass/volume) 0.57 mg /dL 0.00-0.50 Encounters ACCT No. Visit Date/Time Discharge Status Pt. Type Provider Facility Loc./Unit Complaint [id number] 05/20/2017 12:53:00 05/20/2017 16:11:00 DIS Outpatient FLORENTINO PARISI, KLAUDIA [facility] ER FEVER,N [id number] 08/11/2015 08:57:00 08/11/2015 23:59:59 CLS Outpatient PAULTETE CALI [facility] LAB [id number] 08/27/2013 10:43:00 08/27/2013 23:59:59 CLS Outpatient [id number] 07/06/2013 15:32:00 07/06/2013 23:59:59 CLS Outpatient [id number] 06/28/2013 13:22:00 06/28/2013 23:59:59 CLS Outpatient [id number] 06/08/2013 00:15:00 06/14/2013 20:00:00 DIS Inpatient
--- OUTSIDE RECORDS SUMMARY | 2017-06-05 12:49 | XMS REPORT | Continuity of Care Document ---
Author Author [facility] Organization [facility] Address Unknown Phone Unavailable Allergies Active Description Code Type Severity Reaction Onset Reported/Identified Relationship to Patient Clinical Status Yes ipratropium [id number] Drug Allergy Unknown N/A 10/23/2005 Yes BEE STINGS BEE STINGS Unknown N/A 08/23/2006 Medications There is no data. Problems Date Dx Coded Attending Type Code Diagnosis Diagnosed By 08/14/2015 PAULETTE CALI Ot I10 ESSENTIAL (PRIMARY) HYPERTENSION 08/14/2015 PAULETTE CALI Ot I25.10 ATHSCL HEART DISEASE OF [place] CORONARY 08/14/2015 PAULETTE CALI Ot I42.0 DILATED CARDIOMYOPATHY 08/14/2015 PAULETTE CALI Ot J44.9 CHRONIC OBSTRUCTIVE PULMONARY DISEASE, U 08/14/2015 PAULETTE CALI Ot T50.905A ADVERSE EFFECT OF [facility] DRUG/MEDS/BIOL BULL 05/22/2017 KLAUDIA GOOD MD, Ot J11.1 FLU DUE TO UNIDENTIFIED INFLUENZA VIRUS 05/22/2017 KLAUDIA GOOD MD, Ot J43.9 EMPHYSEMA, UNSPECIFIED 05/22/2017 KLAUDIA GOOD MD Ot R50.9 FEVER, UNSPECIFIED 05/22/2017 KLAUDIA GOOD MD Ot Z79.82 LONG-TERM (CURRENT) USE OF ASPIRIN 05/22/2017 KLAUDIA GOOD [...] FOR INFLUENZA A AND B ANTIGENS BY DC [facility] Streptococcus pyogenes antigen detection - 05/20/17 13:52 [...] Status Pt. Type Provider Facility Loc./Unit Complaint [id number] 05/20/2017 12:53:00 05/20/2017 16:11:00 DIS Outpatient FLORENTINO PARISI, KLAUDIA [facility] ER FEVER,N [id number] 08/11/2015 08:57:00 08/11/2015 23:59:59 CLS Outpatient PAULETTE CALI [facility] LAB [id number] 08/27/2013 10:43:00 08/27/2013 23:59:59 CLS Outpatient [id number] 07/06/2013 15:32:00 07/06/2013 23:59:59 CLS Outpatient [id number] 06/28/2013 13:22:00 06/28/2013 23:59:59 CLS Outpatient [id number] 06/08/2013 00:15:00 06/14/2013 20:00:00 DIS Inpatient
== END 2017-06-04 11:33 | disposition home or self-care (01) ==
LOC: EDUNIT# 11:52 → ER 11:54 → 4TH 16:12 → UNDOADMOB 16:12 → 4TH 16:34
PROVIDERS: ADMIT Internal Medicine; ATTEND Internal Medicine
DX: E86.0 Dehydration (principal); K52.9 Noninfective gastroenteritis and colitis, unspecified; I50.9 Heart failure, unspecified; Z79.82 Long term (current) use of aspirin; Z79.899 Other long term (current) drug therapy
CPT/HCPCS: 36415; 71045; 80048; 80053; 83880; 85007; 85025; 85027; 86141; 87804; 96361; 96374; 96376; G0378

== ENCOUNTER → 2017-06-16 | Outpatient (CLI) | payer SELFPAY ==
[~2017-06-16] MED LIST changes: +ACET-2422 PO; +ASPI-983 PO; +CALC1TAB PO; +CARV3.122 PO; +CODE118S2 PO; +ENAL2.5T PO; +FURO40TA4 PO; +MAGN250T2 PO; +MULT1TAB69 PO; +ONDA8TAB13 PO; +SPIR25TA3 PO
[2017-06-16 09:40] LABS: ALANINE AMINOTRANSFERASE 11 U/L (0-55); ALBUMIN 4.4 GM/DL (3.2-4.5); ALKALINE PHOSPHATASE 47 U/L (40-136); BUN/CREATININE RATIO 14; CALCIUM 9.8 MG/DL (8.5-10.1); CARBON DIOXIDE 24 MMOL/L (21-32); CHLORIDE 106 MMOL/L (98-107); CHOLESTEROL 177 MG/DL (< 200); CREATININE SERUM 0.74 MG/DL (0.60-1.30); GFR ESTIMATED > 60; GLUCOSE 103 MG/DL (70-105); HDL CHOLESTEROL 42 MG/DL (40-60); POTASSIUM 4.1 MMOL/L (3.6-5.0); SODIUM 140 MMOL/L (135-145); TOTAL PROTEIN 7.6 GM/DL (6.4-8.2); TRIGLYCERIDES 115 MG/DL (<150); VLDL CHOLESTEROL 23 MG/DL (5-40)
== END ==
LOC: LAB 08:54
PROVIDERS: ATTEND Internal Medicine Cardiovascular Disease
DX: I42.0 Dilated cardiomyopathy (principal); I10 Essential (primary) hypertension; I25.10 Atherosclerotic heart disease of native coronary artery without angina pectoris; R06.02 Shortness of breath
CPT/HCPCS: 36415; 80053; 80061; 83735